=== PATIENT | female | born 1935 | race Caucasian/White ===

== ENCOUNTER 2018-05-12 11:42 | Emergency (ER) | payer MEDICARE ==
[2018-05-12 12:08] VITALS: BP 150/82
--- NOTE | 2018-05-12 13:02 | UC ---
Upper Extremity HPI - HPI Summary HPI Summary: R shoulder pain after hitting it in a door way one week ago. Pain is worsening not improving. Although it has now resolved she did have R under arm bruising. - History of Current Complaint Chief Complaint: UCUpperExtremity Stated Complaint: RIGHT SHOULDER,BACK PAIN Time Seen by Provider: 05/12/18 12:58 Hx Obtained From: Patient Hx Last Menstrual Period: n/a ?: No Onset/Duration: Sudden Onset Pain Intensity: 10 Pain Scale Used: 0-10 Numeric Location Of Pain: Is Discrete @ - r SHOULDER/ARM Character: Sharp, Aching Aggravating Factor(s): Lifting, Flexion, Extension Alleviating Factor(s): Nothing - Allergies/Home Medications Allergies/Adverse Reactions: Allergies Allergy/AdvReac Type Severity Reaction Status Date / Time Penicillins Allergy Hives Verified 05/12/18 11:59 Home Medications: Home Medications Brimonid/Timolol 0.2/0.5%(NF) [Combigan 0.2/0.5% (NF)] 1 drop BOTH EYES BID 04/18 [History Confirmed 05/12/18] Budesonide/Formote 80/4.5(NF) [Symbicort 80/4.5 (NF)] 1 puff INH BID 05/12/18 [ History Confirmed 05/12/18] Dorzolamide HCl 1 dose PO BID 05/12/18 [History Confirmed 05/12/18] Losartan Potassium 100 mg PO DAILY 05/12/18 [History Confirmed 05/12/18] Vitamin E Mixed [E400 Mixed] 400 unit PO DAILY 05/12/18 [History Confirmed 05/12] metFORMIN* [Glucophage 500 MG TAB *] 500 mg PO DAILY 05/12/18 [History Confirmed 05/12/18] PMH/Surg Hx/FS Hx/Imm Hx Previously Healthy: Yes Cardiovascular History: Hypertension - Surgical History Surgical History: Yes Surgery Procedure, Year, and Place: HYSTERECTOMY. BACK SURGERY. CARPAL TUNNEL RELEASE-[facility]. Tube placed in right eye for drainage 08/2014 - Social History Alcohol Use: None Substance Use Type: None Smoking Status (MU): Former Smoker Amount Used/How Often: less than 1 ppd Length of Time of Smoking/Using Tobacco: ~10 years Have You Smoked in the Last Year: No Review of Systems All Other Systems Reviewed And Are Negative: Yes Constitutional: Positive: Negative Skin: Positive: Bruising Neurovascular: Negative: Decreased Sensation, Decreased Pulses Musculoskeletal: Positive: Arthralgia - R shoulder, Decreased ROM - R shoulder. Negative: Edema Neurological: Negative: Weakness, Paresthesia, Numbness Physical Exam Triage Information Reviewed: Yes Appearance: Well-Appearing Vital Signs: Initial Vital Signs Temp 97.5 F 05/12/18 12:00 Pulse 84 05/12/18 12:00 Resp 18 05/12/18 12:00 BP 150/82 05/12/18 12:00 Pulse Ox 98 05/12/18 12:00 Vital Signs Reviewed: Yes Respiratory Exam: Normal Cardiovascular Exam: Normal Musculoskeletal: Positive: No Edema, Other: - R mid-humeral tenderness, R shoulder tenderness, R scapular tenderness. R elbow unremarkable. Neurological: Positive: Alert, Muscle Tone Normal - R UE Skin: Positive: Other - No bruising noted on R upper extremity. Diagnostics - Radiology No standard instances Radiology Interpretation Completed By: Radiologist Summary of Radiographic Findings: FINDINGS: The soft tissues are grossly unremarkable. The bones are osteopenic. No acute fracture is identified. Anatomic alignment is maintained. The coracoclavicular and acromiohumeral intervals are. within normal limits. Upper Extremity Course/Dx - Course Course Of Treatment: 1 wk ago w/ R shoulder pain after hitting it in doorway. Initially had bruise on R arm, but has resolved. exam was significant for tenderness but xray did not show any fx. put her R arm in sling and there was a delay in the reading of the xray but I did explain that if there were a fx we would call her. For now she can take nsaids short term and rest. - Differential Dx/Diagnosis Differential Diagnosis/HQI/PQRI: Bursitis, Contusion, Fracture (Closed), Strain , Sprain Provider Diagnosis: Contusion, shoulder /upper arm Discharge - Sign-Out/Discharge Documenting (check all that apply): Patient Departure All imaging exams completed and their final reports reviewed: Yes - Discharge Plan Condition: Good Disposition: HOME Prescriptions: Ibuprofen [Ibu] 600 mg PO TID #90 tablet Patient Education Materials: Shoulder Sprain (ED) Referrals: Cande Friend MD [Primary Care Provider] - Additional Instructions: Your blood pressure is elevated today. Please follow up with your pcp about this. - Billing Disposition and Condition Condition: GOOD Disposition: Home
--- OUTSIDE RECORDS SUMMARY | 2018-05-12 14:33 | XMS REPORT | Continuity of Care Document ---
:1935 External Reference #:[id number] Author Name Cameron Butts III, MD Address [address] [facility] [place] [address] Care Team Providers Name Role Phone Dallin Trivedi MD Care Team Information [employer] Unavailable Cande Friend MD. Primary Care Physician Unavailable Payers Type Date Identification Numbers Payment Provider Subscriber Policy Number: [id number] [employer] Raya Sharma PayID: [id number] [address] [address] [place] [address] Expires: 2016 Policy Number: [facility] Alexia Sharma [id number] Group Number: [id number] [address] [address] PayID: [id number] [place] [address] Expires: 2015 Policy Number: [id number] Medicare Part B Raya Sharma PayID: [id number] [address] [place] [address] Expires: 2015 Policy Number: [id number] [facility] Raya Sharma PayID: [id number] [address] [place] [address] Expires: 2014 Policy Number: [facility] Alexia Dowell Zachary [id number] PayID: [id number] [address] [address] [place] [address] Advance Directives Description No Information Available Problems Date Description Provider Status Onset: 01/18/2018 Essential hypertension Cameron Butts III, MD Active Onset: 01/18/2018 Osteoarthritis Cameron Butts III, MD Active Onset: 04/13/2018 Presence of intraocular lens Cameron Butts III, MD Active Onset: 04/13/2018 Bilateral primary open angle Cameron Butts III, MD Active glaucoma Family History Date Family Member(s) Problem(s) Comments General Glaucoma Social History Type Date Description Comments Sex Unknown ETOH Use Denies alcohol use Tobacco Use Start: Unknown Patient is a current smoker, smokes some days Allergies, Adverse Reactions, Alerts Date Description Reaction Status Severity Comments 01/18/2018 Penicillin Active Medications Medication Date Status Form Strength Qnty SIG Indications Ordering Provider Combigan 03/26/ Active Solution 0.2-0.5% 20ml instill H40.1132 Cameron F 2017 one drop Devincentis into both III MD eyes twice a day Dorzolamide 03/26/ Active Solution 2% 20ml instill H40.1132 Cameron F HCL 2018 one drop Devincentis into both III MD eyes two times a day Presses 03/14/ Active 3/0 H40.1132 Cameron F 2017 Devincentis III MD Latanoprost 01/19/ Active Solution 0.005% 5ml instill H40.1132 Cameron F 2017 one drop Devincentis into in III MD the left eye at bedtime Ventolin HFA / Active Aerosol 108(90Bas Unknown 0000 e) mcg/Act Diltiazem HCL / Active Caps ER 24HR 360mg Unknown ER Beads 0000 Duloxetine / Active Caps DR Part 30mg Unknown HCL 0000 Gabapentin / Active Capsules 100mg Unknown 0000 Doxycycline / Active Tablets 100mg Unknown Hyclate 0000 Metformin HCL / Active Tablets ER 500mg Unknown ER 0000 24HR Alphagan P 01/19/ Hx Solution 0.1% 20uni 1 drop H40.1132 Cameron Camargo 2017 - ts into the Devincentis 03/26/ left eye III MD 2017 twice a day Cosopt 12/06/ Hx Solution 22.3-6.8m 20ml 1 drop H40.1132 Cameron F 2017 - g/ml both eyes Devincentis 03/26/ twice a III MD 2017 day as directed Combigan 12/06/ Hx Solution 0.2-0.5% 15ml one drop Cameron F 2017 - into both Devincentis 01/19/ eyes III MD 2017 twice a day Azopt 08/25/ Hx Suspension 1% 15ml 1 drop Cameron F 2017 - both eyes Devincentis 01/19/ twice a III MD 2017 day as directed Immunizations Description No Information Available Vital Signs Date Vital Result Comment 04/13/2018 2:00pm Intraocular Pressure Right Eye 12 mmHg ap 02:00 PM Intraocular Pressure Left Eye 12 mmHg ap 02:00 PM Recheck IOP Right Eye 14afd 02:56 PM Recheck IOP Left Eye 13afd 02:56 PM 01/19/2018 10:45am Intraocular Pressure Right Eye 16 mmHg Ap Intraocular Pressure Left Eye 16 mmHg Ap 10:46 Am 01/18/2018 10:07am Cornea Thickness Left Eye 550 m Cornea Thickness Right Eye 609 m Results Description No Information Available Procedures Date Code Description Status 04/13/2018 53775 Scan Computer Diag Imag W/Report Optic Nerve Completed 04/13/2018 08703 Vis Field W/Med Diag;Ext,Stepan Per Completed 01/19/2018 06802 Scan Computer Diag Imag W/Report Optic Nerve Completed 01/19/2018 02402 Vis Field W/Med Diag;Ext,Stepan Per Completed 08/18/2017 41527 Scan Computer Diag Imag W/Report Optic Nerve Completed 08/18/2017 00743 Vis Field W/Med Diag;Ext,Stepan Per Completed 08/18/2017 59276 Exam, Comprehensive, Est PT Completed 01/06/2017 97023 Scan Computer Diag Imag W/Report Optic Nerve Completed 01/06/2017 25880 Vis Field W/Med Diag;Ext,Stepan Per Completed 01/06/2017 03614 Exam, Comprehensive, Est PT Completed 08/26/2016 28616 Scan Computer Diag Imag W/Report Optic Nerve Completed 08/26/2016 95195 Vis Field W/Med Diag;Ext,Stepan Per Completed 02/26/2016 45537 Scan Computer Diag Imag W/Report Optic Nerve Completed 02/26/2016 83604 Vis Field W/Med Diag;Ext,Stepan Per Completed 02/26/2016 32599 Exam, Comprehensive, Est PT Completed 09/18/2015 50324 Vis Field W/Med Diag;Ext,Stepan Per Completed 03/13/2015 18154 Scan Computer Diag Imag W/Report Optic Nerve Completed 03/13/2015 95297 Vis Field W/Med Diag;Ext,Stepan Per Completed 12/08/2014 80692 Scan Computer Diag Imag W/Report Optic Nerve Completed 08/14/2014 48703 Scleral Reinforce;W/Graft OD Completed 08/14/2014 58169 Aqueous Shunt Extraocular Reservr Completed 07/30/2014 97996 Exam, Intermediate Est PT Completed 03/12/2014 35498 Scan Computer Diag Imag W/Report Optic Nerve Completed 03/12/2014 58840 Vis Field W/Med Diag;Ext,Stepan Per Completed 03/12/2014 35633 Exam, Intermediate Est PT Completed 10/04/2013 02411 Scan Computer Diag Imag W/Report Optic Nerve Completed 08/23/2013 33122 Vis Field W/Med Diag;Ext,Stepan Per Completed 08/23/2013 51562 Gonioscopy W/Med Diag Eval Completed 07/16/2013 52131 Scan Computer Diag Imag W/Report Optic Nerve Completed 06/21/2013 64556 Exam Comprehensive, New PT Completed 06/21/2013 43924 Cornea Pachymetry, Unilat/Bilat Completed Encounters Type Date Location Provider Dx Diagnosis Office Visit 01/19/2018 Main Office Cameron F H40.1132 Primary open-angle 10:00a Devincentis III MD glaucoma, bilateral, moderate stage Z96.1 Presence of intraocular lens Office Visit 08/26/2016 1:15p Main Office Cameron F H40.1132 Primary Devincentis III MD open-angle glaucoma, bilateral, moderate stage Z96.1 Presence of intraocular lens Office Visit 09/18/2015 9:30a Main Office Cameron F H40.11x3 Primary Devincentis III MD open-angle glaucoma, severe stage Z96.1 Presence of intraocular lens Office Visit 03/13/2015 10:15a Main Office Cameron F H40.11x3 Primary Devincentis III MD open-angle glaucoma, severe stage Z96.1 Presence of intraocular lens H40.11x2 Primary open-angle glaucoma, moderate stage Office Visit 01/09/2015 10:15a Main Office Cameron F 365.73 Severe Stage Devincentis III MD Glaucoma 365.11 Glaucoma Primary Open Angle Office Visit 12/08/2014 2:30p Main Office Cameron F 365.11 Glaucoma Primary Devincentis III MD Open Angle 365.72 Moderate Stage Glaucoma Office Visit 07/30/2014 9:45a Main Office Cameron F 365.11 Glaucoma Primary Devincentis III MD Open Angle 365.72 Moderate Stage Glaucoma Office Visit 07/11/2014 10:00a Main Office Cameron F 365.11 Glaucoma Primary Devincentis III MD Open Angle 365.72 Moderate Stage Glaucoma Office Visit 01/07/2014 1:45p Main Office Cameron F 365.11 Glaucoma Primary Devincentis III MD Open Angle 365.72 Moderate Stage Glaucoma V43.1 Lens Replaced By Other Means Office Visit 11/04/2013 2:30p Main Office Cameron Camargo 365.11 Glaucoma Primary Devincentis III MD Open Angle 365.72 Moderate Stage Glaucoma V43.1 Lens Replaced By Other Means Office Visit 10/04/2013 10:30a Main Office Cameron Camargo 365.11 Glaucoma Primary Devincentis III MD Open Angle 365.72 Moderate Stage Glaucoma V43.1 Lens Replaced By Other Means Office Visit 08/23/2013 11:00a Main Office Cameron Camargo 365.11 Glaucoma Primary Devincentis III MD Open Angle 365.72 Moderate Stage Glaucoma Office Visit 07/16/2013 1:45p Main Office Cameron Camargo 365.11 Glaucoma Primary Devincentis III MD Open Angle 365.72 Moderate Stage Glaucoma Plan of Treatment Future Appointment(s):10/12/2018 10:15 am - Cameron Butts III, MD at [facility]/13/2018 - Cameron Bojorquezncentis III H40.1132 Primary open-angle glaucoma, bilateral, moderate stageComments:continue the same management. continue same medicationsFollow up:5-6 m iop, OD 10-2, 30-2, OU Nerve Oct, Dil 0.5%.Z96.1 Presence of intraocular lensComments:doing well both eyes.
== END 2018-05-12 14:09 | disposition home or self-care (01) ==
LOC: UCCORT 11:42
DX: S40.011A Contusion of right shoulder, initial encounter (principal); S40.021A Contusion of right upper arm, initial encounter; W22.09XA Striking against other stationary object, initial encounter; Y93.9 Activity, unspecified; Y92.9 Unspecified place or not applicable; Z88.0 Allergy status to penicillin; I10 Essential (primary) hypertension; Z87.891 Personal history of nicotine dependence
CPT/HCPCS: 99203; G0463

== ENCOUNTER 2020-03-17 20:24 | Observation (INO) ==
[2020-03-17] MEDS ORDERED: NS 0.9% 1000 ml BAG 1,000 ML IV ONE (20:51)
[2020-03-17 21:40] LABS: ABS Basophils 0.1 10^3/ul (0-0.2); ABS Eosinophils 0.4 10^3/ul (0-0.6); ABS Lymphocytes 2.5 10^3/ul (1.0-4.8); ABS Neutrophils 7.5 10^3/ul (1.5-7.7); Eosinophil % 3.2 %; Hematocrit 38 % (35-47); Hemoglobin 12.5 g/dL (12.0-16.0); Lymphocyte % 21.9 %; Mean Corpuscular HGB Conc 33 g/dL (31-36); Mean Corpuscular Hemoglobin 30 pg (27-31); Mean Corpuscular Volume 89 fL (80-97); Mean Platelet Volume 7.1 fL (7.4-10.4); Platelet Count 330 10^3/uL (150-450); Red Blood Count 4.25 10^6 /uL (3.70-4.87); Red Cell Distribution Width 14 % (10-15); White Blood Count 11.5 10^3/uL (3.5-10.8)
[2020-03-17 21:54] LABS: INR 1.06 (0.82-1.09)
[2020-03-17 22:00] LABS: Albumin 4.3 g/dL (3.2-5.2); Albumin/Globulin Ratio 1.2 (1-3); BUN/Creatinine Ratio 24.7 (8-20); C Reactive Protein 3.94 mg/L (<8.01); Calcium 10.3 mg/dL (8.6-10.3); EGFR African American 72.9 (>60); EGFR Non-African American 60.3 (>60); Globulin 3.6 g/dL (2-4); Magnesium 1.9 mg/dL (1.9-2.7); Potassium 3.9 mmol/L (3.5-5.0); Total Bilirubin 0.3 mg/dL (0.2-1.0); Total Protein 7.9 g/dL (6.4-8.9)
[2020-03-17] MEDS ORDERED: Iodixanol (CONTRAST) 320 MG/ML 100 ML SDV IV ONE (22:02)
[2020-03-17 22:14] LABS: TSH Ultra Thyroid Stim Horm 2.12 mcIU/mL (0.34-5.60)
[2020-03-17 22:15] LABS: Urine Appearance Clear; Urine Bilirubin Negative (Negative); Urine Blood Negative (Negative); Urine Color Yellow; Urine Glucose Negative (Negative); Urine Ketones Negative (Negative); Urine Nitrite Negative (Negative); Urine Protein Negative (Negative); Urine Specific Gravity 1.011 (1.010-1.030); Urine Urobilinogen Negative (Negative)
[2020-03-18] MEDS ORDERED: Dextrose 50% Syringe 50 ml 25 GM/50 ML SYRINGE IV PUSH PRN (00:22)
[2020-03-18] MEDS ORDERED: Labetalol IV 5 MG/ML 20 ml VIAL IV PUSH PRN ×2 (00:24→00:34)
[2020-03-18] MEDS: Enoxaparin 40 MG/0.4 ML SYR SUBCUT SCH ×2 (01:14→21:00)
[2020-03-18] MEDS: Mometasone/Formoter 100/5 MDI INH SCH ×2 (08:08→19:57)
[2020-03-18] MEDS ORDERED: Perflutren Lipid Microsphere 3 ML VIAL ONE (11:19)
[2020-03-18] MEDS: Brimonidine/Timolol 0.2%/0.5% OPTH(NF) SOL 5 ML BOTH EYES SCH ×2 (11:27→21:00)
[2020-03-18] MEDS: DULoxetine DR 30 mg CAP PO SCH (11:55)
[2020-03-18] MEDS: Aspirin EC 81 mg TAB.EC (enteric coated) PO SCH (11:56)
[2020-03-19 06:06] LABS: ABS Basophils 0.1 10^3/ul (0-0.2); ABS Eosinophils 0.7 10^3/ul (0-0.6); ABS Lymphocytes 3.3 10^3/ul (1.0-4.8); ABS Monocytes 1.2 10^3/ul (0-0.8); ABS Neutrophils 8.6 10^3/ul (1.5-7.7); Eosinophil % 4.7 %; Hematocrit 39 % (35-47); Hemoglobin 12.7 g/dL (12.0-16.0); Lymphocyte % 24.1 %; Mean Corpuscular HGB Conc 33 g/dL (31-36); Mean Corpuscular Hemoglobin 30 pg (27-31); Mean Corpuscular Volume 90 fL (80-97); Mean Platelet Volume 7.3 fL (7.4-10.4); Platelet Count 341 10^3/uL (150-450); Red Cell Distribution Width 14 % (10-15); White Blood Count 13.8 10^3/uL (3.5-10.8)
[2020-03-19 06:25] LABS: BUN/Creatinine Ratio 19.5 (8-20); Calcium 9.7 mg/dL (8.6-10.3); EGFR African American 74.9 (>60); EGFR Non-African American 61.9 (>60); HDL Cholesterol 45.1 mg/dL
[2020-03-19 07:40] VITALS: BP 144/75
[2020-03-19] MEDS: Mometasone/Formoter 100/5 MDI INH SCH (08:30)
[2020-03-19] MEDS: Brimonidine/Timolol 0.2%/0.5% OPTH(NF) SOL 5 ML BOTH EYES SCH (08:41)
[2020-03-19] MEDS: Aspirin EC 81 mg TAB.EC (enteric coated) PO SCH (08:56)
[2020-03-19] MEDS: DULoxetine DR 30 mg CAP PO SCH (08:56)
== END 2020-03-19 11:25 | disposition home or self-care (01) ==
LOC: ED 20:24 → MEDTELE 20:24
PROVIDERS: ADMIT Internal Medicine; ATTEND Pediatrics

== ENCOUNTER 2021-05-04 15:46 | Inpatient (IN) ==
[2021-05-04 16:44] LABS: ABS Basophils 0.1 10^3/ul (0-0.2); ABS Eosinophils 0.5 10^3/ul (0-0.6); ABS Lymphocytes 2.7 10^3/ul (1.0-4.8); ABS Monocytes 1.1 10^3/ul (0-0.8); ABS Neutrophils 8.8 10^3/ul (1.5-7.7); Eosinophil % 3.8 %; Hematocrit 37 % (35-47); Hemoglobin 12.2 g/dL (12.0-16.0); Lymphocyte % 20.6 %; Mean Corpuscular HGB Conc 33 g/dL (31-36); Mean Corpuscular Hemoglobin 30 pg (27-31); Mean Corpuscular Volume 90 fL (80-97); Mean Platelet Volume 7.2 fL (7.4-10.4); Platelet Count 349 10^3/uL (150-450); Red Cell Distribution Width 14 % (10-15); White Blood Count 13.3 10^3/uL (3.5-10.8)
[2021-05-04 17:06] LABS: Albumin 4.2 g/dL (3.2-5.2); Albumin/Globulin Ratio 1.2 (1-3); Calcium 9.6 mg/dL (8.6-10.3); Globulin 3.6 g/dL (2-4); Magnesium 1.8 mg/dL (1.9-2.7); Potassium 4.5 mmol/L (3.5-5.0); Total Bilirubin 0.3 mg/dL (0.2-1.0); Total Protein 7.8 g/dL (6.4-8.9); eGFR CKD-EPI 60.6 (>60)
[2021-05-04] MEDS ORDERED: Magnesium Sulfate 2 gm BAG 2 GM/50 ML BAG IVPB ONE (20:02)
[2021-05-04 20:18] LABS: Urine Appearance Cloudy; Urine Bilirubin Negative (Negative); Urine Blood Negative (Negative); Urine Color Yellow; Urine Glucose Negative (Negative); Urine Ketones Negative (Negative); Urine Nitrite Negative (Negative); Urine Protein Negative (Negative); Urine Specific Gravity 1.009 (1.002-1.030); Urine Urobilinogen Negative (Negative)
[2021-05-04 20:23] LABS: Urine Bacteria Absent (Absent); Urine Red Blood Cell Trace(0-2/hpf) (Absent); Urine White Blood Cell 2+(11-20/hpf) (Absent)
[2021-05-04] MEDS ORDERED: Albuterol HFA INHALER 8 gm MDI INH PRN (20:46)
[2021-05-04] MEDS ORDERED: METFORMIN 500 MG PO SCH (21:00)
[2021-05-04] MEDS: Enoxaparin 40 MG/0.4 ML SYR SUBCUT SCH (21:15)
[2021-05-05] MEDS: Mometasone/Formoter 100/5 MDI INH SCH ×3 (02:07→20:20)
[2021-05-05] MEDS: Latanoprost 0.005% 2.5 ml BTL BOTH EYES SCH ×2 (06:27→20:26)
[2021-05-05] MEDS: CMC:Brimonidine/Timolol 0.2%/0.5% OPTH(NF) SOL 5 ML BOTH EYES SCH ×5 (06:27→20:34)
[2021-05-05] MEDS ORDERED: Dextrose 50% Syringe 50 ml 25 GM/50 ML SYRINGE IV PUSH PRN (06:43)
[2021-05-05 07:09] LABS: ABS Basophils 0.1 10^3/ul (0-0.2); ABS Eosinophils 0.4 10^3/ul (0-0.6); ABS Lymphocytes 3.3 10^3/ul (1.0-4.8); ABS Neutrophils 7.4 10^3/ul (1.5-7.7); Hematocrit 35 % (35-47); Hemoglobin 11.8 g/dL (12.0-16.0); Lymphocyte % 26.9 %; Mean Corpuscular HGB Conc 34 g/dL (31-36); Mean Corpuscular Hemoglobin 30 pg (27-31); Mean Corpuscular Volume 89 fL (80-97); Platelet Count 338 10^3/uL (150-450); Red Blood Count 3.93 10^6 /uL (3.70-4.87); Red Cell Distribution Width 14 % (10-15); White Blood Count 12.2 10^3/uL (3.5-10.8)
[2021-05-05 07:25] LABS: Calcium 9.4 mg/dL (8.6-10.3); Potassium 4.5 mmol/L (3.5-5.0); eGFR CKD-EPI 59.1 (>60)
[2021-05-05 07:40] LABS: C Reactive Protein 2.46 mg/L (<8.01)
[2021-05-05] MEDS ORDERED: Bimatoprost 0.01% OPHTH (NF) 2.5 ML BTL BOTH EYES SCH (09:00)
[2021-05-05] MEDS: DULoxetine DR 30 mg CAP PO SCH (11:43)
[2021-05-05] MEDS: Aspirin EC 81 mg TAB.EC (enteric coated) PO SCH (11:43)
[2021-05-05 12:52] LABS: TSH Ultra Thyroid Stim Horm 0.96 mcIU/mL (0.34-5.60)
[2021-05-05] MEDS: Enoxaparin 40 MG/0.4 ML SYR SUBCUT SCH (20:26)
[2021-05-06 04:55] LABS: ABS Basophils 0.1 10^3/ul (0-0.2); ABS Eosinophils 0.5 10^3/ul (0-0.6); ABS Lymphocytes 3.8 10^3/ul (1.0-4.8); ABS Monocytes 1.2 10^3/ul (0-0.8); ABS Neutrophils 6.8 10^3/ul (1.5-7.7); Eosinophil % 4.1 %; Hematocrit 35 % (35-47); Hemoglobin 11.3 g/dL (12.0-16.0); Lymphocyte % 30.6 %; Mean Corpuscular HGB Conc 32 g/dL (31-36); Mean Corpuscular Hemoglobin 29 pg (27-31); Mean Corpuscular Volume 89 fL (80-97); Mean Platelet Volume 7.3 fL (7.4-10.4); Platelet Count 328 10^3/uL (150-450); Red Blood Count 3.92 10^6 /uL (3.70-4.87); Red Cell Distribution Width 14 % (10-15); White Blood Count 12.3 10^3/uL (3.5-10.8)
[2021-05-06 05:10] LABS: Calcium 9.1 mg/dL (8.6-10.3); Potassium 3.6 mmol/L (3.5-5.0); eGFR CKD-EPI 52.3 (>60)
[2021-05-06] MEDS: DULoxetine DR 30 mg CAP PO SCH (09:31)
[2021-05-06] MEDS: CMC:Brimonidine/Timolol 0.2%/0.5% OPTH(NF) SOL 5 ML BOTH EYES SCH ×2 (09:33→19:42)
[2021-05-06] MEDS: Aspirin EC 81 mg TAB.EC (enteric coated) PO SCH (09:33)
[2021-05-06] MEDS: Mometasone/Formoter 100/5 MDI INH SCH ×2 (09:34→19:13)
[2021-05-06] MEDS ORDERED: NS 0.9% 1000 ml BAG 1,000 ML IV ONE (16:27)
[2021-05-06] MEDS: Latanoprost 0.005% 2.5 ml BTL BOTH EYES SCH (19:42)
[2021-05-06 20:44] LABS: ABS Basophils 0.1 10^3/ul (0-0.2); ABS Eosinophils 0.4 10^3/ul (0-0.6); ABS Monocytes 1.1 10^3/ul (0-0.8); ABS Neutrophils 7.1 10^3/ul (1.5-7.7); Eosinophil % 3.4 %; Hematocrit 32 % (35-47); Lymphocyte % 25.9 %; Mean Corpuscular HGB Conc 34 g/dL (31-36); Mean Corpuscular Hemoglobin 30 pg (27-31); Mean Corpuscular Volume 89 fL (80-97); Mean Platelet Volume 7.4 fL (7.4-10.4); Platelet Count 316 10^3/uL (150-450); Red Blood Count 3.64 10^6 /uL (3.70-4.87); Red Cell Distribution Width 13 % (10-15); White Blood Count 11.6 10^3/uL (3.5-10.8)
[2021-05-06 20:59] LABS: Activated Partial Thrombo Time 28.3 seconds (26.0-38.0); INR 1.05 (0.86-1.15)
[2021-05-06] MEDS: Heparin 5000 UNITS/ML 1 mL VIAL SUBCUT SCH (21:49)
[2021-05-07] MEDS: cefTRIAXone 1 gm/50 mL NS BAG 1 GM/50 ML BAG IVPB SCH ×2 (01:19→19:44)
[2021-05-07] MEDS: Heparin 5000 UNITS/ML 1 mL VIAL SUBCUT SCH ×3 (05:20→22:12)
[2021-05-07 07:17] LABS: Calcium 8.8 mg/dL (8.6-10.3); Magnesium 1.9 mg/dL (1.9-2.7); Potassium 3.7 mmol/L (3.5-5.0); eGFR CKD-EPI 57.6 (>60)
[2021-05-07] MEDS: DULoxetine DR 30 mg CAP PO SCH (07:59)
[2021-05-07] MEDS: CMC:Brimonidine/Timolol 0.2%/0.5% OPTH(NF) SOL 5 ML BOTH EYES SCH (07:59)
[2021-05-07] MEDS: Mometasone/Formoter 100/5 MDI INH SCH ×2 (08:36→19:19)
[2021-05-07] MEDS ORDERED: NS 0.9% 500 ml BAG 500 ML IV ONE ×2 (11:32→17:11)
[2021-05-07 17:53] LABS: Rapid COVID-19 Molecular Undetected (Undetected)
[2021-05-07] MEDS: Latanoprost 0.005% 2.5 ml BTL BOTH EYES SCH (19:44)
[2021-05-08] MEDS ORDERED: NS 0.9% 500 ml BAG 500 ML IV ONE (03:39)
[2021-05-08] MEDS: Heparin 5000 UNITS/ML 1 mL VIAL SUBCUT SCH (05:22)
[2021-05-08] MEDS: Mometasone/Formoter 100/5 MDI INH SCH (07:59)
[2021-05-08 08:04] LABS: ABS Basophils 0.1 10^3/ul (0-0.2); ABS Eosinophils 0.5 10^3/ul (0-0.6); ABS Lymphocytes 2.6 10^3/ul (1.0-4.8); ABS Monocytes 0.9 10^3/ul (0-0.8); ABS Neutrophils 6.9 10^3/ul (1.5-7.7); Eosinophil % 4.6 %; Hematocrit 34 % (35-47); Hemoglobin 11.3 g/dL (12.0-16.0); Lymphocyte % 23.8 %; Mean Corpuscular HGB Conc 34 g/dL (31-36); Mean Corpuscular Hemoglobin 30 pg (27-31); Mean Corpuscular Volume 90 fL (80-97); Mean Platelet Volume 7.5 fL (7.4-10.4); Platelet Count 303 10^3/uL (150-450); Red Blood Count 3.74 10^6 /uL (3.70-4.87); Red Cell Distribution Width 14 % (10-15)
[2021-05-08 08:09] LABS: Calcium 8.7 mg/dL (8.6-10.3); Magnesium 1.9 mg/dL (1.9-2.7); Potassium 4.3 mmol/L (3.5-5.0); eGFR CKD-EPI 61.4 (>60)
[2021-05-08] MEDS: DULoxetine DR 30 mg CAP PO SCH (08:37)
[2021-05-08 11:06] VITALS: BP 176/73
== END 2021-05-08 12:33 | disposition short-term general hospital (02) | DRG 312 ==
LOC: ED 15:46 → MED 16:00 → EDHOLD 19:56 → SUATTDRO 19:56 → MED 22:27
PROVIDERS: ADMIT Internal Medicine; ATTEND Internal Medicine

== ENCOUNTER 2021-09-06 20:03 | Inpatient (IN) ==
[2021-09-06] MEDS ORDERED: Enoxaparin 80 MG/0.8 ML SYR SUBCUT ONE (20:50)
[2021-09-06 21:04] LABS: ABS Basophils 0.1 10^3/ul (0-0.2); ABS Eosinophils 0.4 10^3/ul (0-0.6); ABS Lymphocytes 1.7 10^3/ul (1.0-4.8); ABS Neutrophils 17.2 10^3/ul (1.5-7.7); Eosinophil % 1.9 %; Hematocrit 30 % (35-47); Hemoglobin 9.5 g/dL (12.0-16.0); Lymphocyte % 8.3 %; Mean Corpuscular HGB Conc 32 g/dL (31-36); Mean Corpuscular Hemoglobin 28 pg (27-31); Mean Corpuscular Volume 87 fL (80-97); Mean Platelet Volume 7.1 fL (7.4-10.4); Platelet Count 470 10^3/uL (150-450); Red Blood Count 3.46 10^6 /uL (3.70-4.87); Red Cell Distribution Width 15 % (10-15); White Blood Count 20.4 10^3/uL (3.5-10.8)
[2021-09-06 21:24] LABS: High Sens Troponin Baseline 44 pg/mL (<15)
[2021-09-06 21:38] LABS: Albumin 3.6 g/dL (3.2-5.2); CO2 Carbon Dioxide 22 mmol/L (22-32); Calcium 9.1 mg/dL (8.6-10.3); Chloride 105 mmol/L (101-111); Sodium 136 mmol/L (135-145)
[2021-09-06 21:39] LABS: Anion Gap 9 mmol/L (2-11)
[2021-09-06 21:39] LABS: Activated Partial Thrombo Time 28.5 seconds (26.0-38.0); INR 1.1 (0.86-1.15)
[2021-09-06 21:44] LABS: ALT 17 U/L (7-52); Albumin/Globulin Ratio 1.1 (1-3); Alkaline Phosphatase 80 U/L (35-149); Blood Urea Nitrogen 19 mg/dL (6-24); Globulin 3.3 g/dL (2-4); Glucose 171 mg/dL (70-100); Total Protein 6.9 g/dL (6.4-8.9); eGFR CKD-EPI 65.3 (>60)
[2021-09-06] MEDS ORDERED: Iodixanol (CONTRAST) 320 MG/ML 100 ML SDV IV ONE (21:45)
[2021-09-06 22:44] LABS: High Sensitivity Troponin 1 Hr 55 pg/mL (<15)
[2021-09-06 23:01] LABS: Magnesium 1.9 mg/dL (1.9-2.7); Potassium Redraw 3.9 mmol/L (3.5-5.0)
[2021-09-07] MEDS ORDERED: Furosemide 20 mg/2 ml IV VIAL IV ONE ×2 (01:45→09:38)
[2021-09-07 04:04] LABS: Urine Appearance Cloudy; Urine Bilirubin Negative (Negative); Urine Blood Negative (Negative); Urine Color Yellow; Urine Glucose Negative (Negative); Urine Ketones Negative (Negative); Urine Nitrite Positive (Negative); Urine Protein Negative (Negative); Urine Specific Gravity 1.026 (1.002-1.030); Urine Urobilinogen Negative (Negative)
[2021-09-07 04:07] LABS: Urine Bacteria Absent (Absent); Urine Red Blood Cell 1+(3-5/hpf) (Absent); Urine Squamous Epithelial Cell Present (Absent); Urine White Blood Cell Trace(0-5/hpf) (Absent)
[2021-09-07] MEDS ORDERED: Dextrose 50% Syringe 50 ml 25 GM/50 ML SYRINGE IV PUSH PRN (04:47)
[2021-09-07] MEDS ORDERED: cefTRIAXone 1 gm/50 mL D5W 1 GM/50 ML BAG IV ONE (05:00)
[2021-09-07 06:02] LABS: ABS Basophils 0.1 10^3/ul (0-0.2); ABS Eosinophils 0.3 10^3/ul (0-0.6); ABS Monocytes 1.1 10^3/ul (0-0.8); ABS Neutrophils 11.3 10^3/ul (1.5-7.7); Eosinophil % 2.3 %; Hematocrit 27 % (35-47); Hemoglobin 8.7 g/dL (12.0-16.0); Lymphocyte % 13.5 %; Mean Corpuscular HGB Conc 32 g/dL (31-36); Mean Corpuscular Hemoglobin 28 pg (27-31); Mean Corpuscular Volume 86 fL (80-97); Platelet Count 406 10^3/uL (150-450); Red Cell Distribution Width 15 % (10-15); White Blood Count 14.9 10^3/uL (3.5-10.8)
[2021-09-07] MEDS: Enoxaparin 40 MG/0.4 ML SYR SUBCUT SCH (06:34)
[2021-09-07 07:04] LABS: Calcium 8.8 mg/dL (8.6-10.3); HDL Cholesterol 35.9 mg/dL; Potassium 4.1 mmol/L (3.5-5.0); eGFR CKD-EPI 61.1 (>60)
[2021-09-07 07:16] LABS: TSH Ultra Thyroid Stim Horm 1.15 mcIU/mL (0.34-5.60)
[2021-09-07] MEDS: Mometasone/Formoter 100/5 MDI INH SCH (07:32)
[2021-09-07] MEDS: DULoxetine DR 30 mg CAP PO SCH (09:04)
[2021-09-07] MEDS: CMCS: Dorzolamide 2% OPTH (NF) 10 ML BTL BOTH EYES SCH ×2 (09:04→21:46)
[2021-09-07] MEDS: CMCS: Brimonidine/Timolol 0.2%/0.5% OPTH(NF) SOL 5 ML BOTH EYES SCH ×2 (09:05→21:47)
[2021-09-07 09:53] LABS: Ferritin 27.4 ng/mL (11-307)
[2021-09-07] MEDS ORDERED: Perflutren Lipid Microsphere 3 ML VIAL ONE (10:34)
[2021-09-07 15:45] LABS: Hematocrit 30 % (35-47); Hemoglobin 9.3 g/dL (12.0-16.0); Mean Corpuscular HGB Conc 31 g/dL (31-36); Mean Corpuscular Hemoglobin 27 pg (27-31); Mean Corpuscular Volume 87 fL (80-97); Red Cell Distribution Width 14 % (10-15)
[2021-09-07 15:58] LABS: Platelet Count Platelets clumped. 10^3/uL (150-450)
[2021-09-07] MEDS: Latanoprost 0.005% 2.5 ml BTL BOTH EYES SCH (21:47)
[2021-09-08] MEDS ORDERED: cefTRIAXone 1 gm/50 mL D5W 1 GM/50 ML BAG IV SCH (05:00)
[2021-09-08] MEDS: Enoxaparin 40 MG/0.4 ML SYR SUBCUT SCH (06:14)
[2021-09-08 06:48] LABS: Hematocrit 29 % (35-47); Hemoglobin 9.4 g/dL (12.0-16.0); Mean Corpuscular HGB Conc 32 g/dL (31-36); Mean Corpuscular Hemoglobin 28 pg (27-31); Mean Corpuscular Volume 86 fL (80-97); Mean Platelet Volume 7.1 fL (7.4-10.4); Platelet Count 406 10^3/uL (150-450); Red Blood Count 3.39 10^6 /uL (3.70-4.87); Red Cell Distribution Width 14 % (10-15); White Blood Count 13.9 10^3/uL (3.5-10.8)
[2021-09-08 07:42] LABS: Calcium 9.1 mg/dL (8.6-10.3); eGFR CKD-EPI 55.2 (>60)
[2021-09-08] MEDS: Mometasone/Formoter 100/5 MDI INH SCH (08:30)
[2021-09-08] MEDS ORDERED: Senna TAB 8.6 mg TAB PO PRN (08:58)
[2021-09-08] MEDS ORDERED: NS 0.9% 1000 ml BAG 1,000 ML IV SCH (09:00)
[2021-09-08] MEDS ORDERED: Magnesium Sulfate 2 gm BAG 2 GM/50 ML BAG IVPB ONE (09:02)
[2021-09-08] MEDS ORDERED: Magnesium Hydroxide LIQ 30 ML UDC PO PRN (09:02)
[2021-09-08] MEDS: DULoxetine DR 30 mg CAP PO SCH (09:51)
[2021-09-08] MEDS: CMCS: Brimonidine/Timolol 0.2%/0.5% OPTH(NF) SOL 5 ML BOTH EYES SCH ×2 (09:54→20:26)
[2021-09-08] MEDS: CMCS: Dorzolamide 2% OPTH (NF) 10 ML BTL BOTH EYES SCH ×2 (09:55→20:25)
[2021-09-08] MEDS: Nystatin TOP POWDER 15 GM BTL TOPICAL SCH ×3 (10:01→20:25)
[2021-09-08 16:57] LABS: C Reactive Protein 11.57 mg/L (<8.01)
[2021-09-08] MEDS ORDERED: Cefepime ADVAN 1 GM in NS 0.9% 50 ML 50 ML IVPB SCH (17:00)
[2021-09-08] MEDS: Cefepime 1 GM in Dextrose 1 GM/50 ML BAG IV SCH (19:42)
[2021-09-08] MEDS: Latanoprost 0.005% 2.5 ml BTL BOTH EYES SCH (20:25)
[2021-09-09 05:25] LABS: ABS Basophils 0.1 10^3/ul (0-0.2); ABS Eosinophils 0.6 10^3/ul (0-0.6); ABS Monocytes 1.3 10^3/ul (0-0.8); ABS Neutrophils 9.9 10^3/ul (1.5-7.7); Eosinophil % 4.5 %; Hematocrit 30 % (35-47); Hemoglobin 9.6 g/dL (12.0-16.0); Lymphocyte % 14.3 %; Mean Corpuscular HGB Conc 33 g/dL (31-36); Mean Corpuscular Hemoglobin 28 pg (27-31); Mean Corpuscular Volume 85 fL (80-97); Mean Platelet Volume 6.8 fL (7.4-10.4); Platelet Count 388 10^3/uL (150-450); Red Blood Count 3.47 10^6 /uL (3.70-4.87); Red Cell Distribution Width 14 % (10-15); White Blood Count 13.8 10^3/uL (3.5-10.8)
[2021-09-09] MEDS: Cefepime 1 GM in Dextrose 1 GM/50 ML BAG IV SCH ×2 (05:39→17:14)
[2021-09-09 05:45] LABS: Magnesium 2.4 mg/dL (1.9-2.7); Potassium 3.6 mmol/L (3.5-5.0); eGFR CKD-EPI 44.7 (>60)
[2021-09-09] MEDS: Enoxaparin 40 MG/0.4 ML SYR SUBCUT SCH (06:06)
[2021-09-09] MEDS: Mometasone/Formoter 100/5 MDI INH SCH (08:09)
[2021-09-09] MEDS: DULoxetine DR 30 mg CAP PO SCH (10:09)
[2021-09-09] MEDS: CMCS: Dorzolamide 2% OPTH (NF) 10 ML BTL BOTH EYES SCH ×2 (10:13→20:21)
[2021-09-09] MEDS: CMCS: Brimonidine/Timolol 0.2%/0.5% OPTH(NF) SOL 5 ML BOTH EYES SCH ×2 (10:14→20:21)
[2021-09-09] MEDS: Nystatin TOP POWDER 15 GM BTL TOPICAL SCH ×3 (13:02→20:21)
[2021-09-09] MEDS ORDERED: Iron Sucrose 20 MG/ML 5 ML VIAL IV PUSH ONE (13:18)
[2021-09-09] MEDS ORDERED: Iron Sucrose 200 MG in NS 0.9% 100 ml IVPB ONE (13:45)
[2021-09-09] MEDS: Latanoprost 0.005% 2.5 ml BTL BOTH EYES SCH (20:21)
[2021-09-10 04:44] LABS: Hematocrit 28 % (35-47); Mean Corpuscular HGB Conc 32 g/dL (31-36); Mean Corpuscular Hemoglobin 28 pg (27-31); Mean Corpuscular Volume 86 fL (80-97); Mean Platelet Volume 7.1 fL (7.4-10.4); Platelet Count 346 10^3/uL (150-450); Red Blood Count 3.28 10^6 /uL (3.70-4.87); Red Cell Distribution Width 15 % (10-15)
[2021-09-10 05:16] LABS: Calcium 8.7 mg/dL (8.6-10.3); Magnesium 2.1 mg/dL (1.9-2.7); Potassium 3.5 mmol/L (3.5-5.0)
[2021-09-10 05:22] LABS: eGFR CKD-EPI 47.1 (>60)
[2021-09-10] MEDS: Cefepime 1 GM in Dextrose 1 GM/50 ML BAG IV SCH ×2 (06:12→20:07)
[2021-09-10] MEDS: Enoxaparin 40 MG/0.4 ML SYR SUBCUT SCH (06:12)
[2021-09-10] MEDS: Mometasone/Formoter 100/5 MDI INH SCH (08:30)
[2021-09-10] MEDS: DULoxetine DR 30 mg CAP PO SCH (09:27)
[2021-09-10] MEDS: CMCS: Brimonidine/Timolol 0.2%/0.5% OPTH(NF) SOL 5 ML BOTH EYES SCH ×2 (09:29→20:11)
[2021-09-10] MEDS: CMCS: Dorzolamide 2% OPTH (NF) 10 ML BTL BOTH EYES SCH ×2 (09:30→20:11)
[2021-09-10] MEDS: Nystatin TOP POWDER 15 GM BTL TOPICAL SCH ×3 (09:32→20:12)
[2021-09-10] MEDS ORDERED: Iron Sucrose 200 MG in NS 0.9% 100 ml BAG 100 ML IVPB ONE (13:44)
[2021-09-10] MEDS: Latanoprost 0.005% 2.5 ml BTL BOTH EYES SCH (20:11)
[2021-09-11] MEDS: Enoxaparin 40 MG/0.4 ML SYR SUBCUT SCH (05:41)
[2021-09-11] MEDS: Cefepime 1 GM in Dextrose 1 GM/50 ML BAG IV SCH ×2 (05:41→18:06)
[2021-09-11 06:14] LABS: Hematocrit 29 % (35-47); Hemoglobin 9.2 g/dL (12.0-16.0); Mean Corpuscular HGB Conc 32 g/dL (31-36); Mean Corpuscular Hemoglobin 27 pg (27-31); Mean Corpuscular Volume 86 fL (80-97); Platelet Count 324 10^3/uL (150-450); Red Blood Count 3.37 10^6 /uL (3.70-4.87); Red Cell Distribution Width 15 % (10-15); White Blood Count 15.4 10^3/uL (3.5-10.8)
[2021-09-11 06:35] LABS: Calcium 8.8 mg/dL (8.6-10.3); Potassium 3.7 mmol/L (3.5-5.0); eGFR CKD-EPI 51.4 (>60)
[2021-09-11] MEDS: Mometasone/Formoter 100/5 MDI INH SCH (07:33)
[2021-09-11] MEDS: DULoxetine DR 30 mg CAP PO SCH (09:02)
[2021-09-11 09:47] LABS: ABS Basophils 0.1 10^3/ul (0-0.2); ABS Eosinophils 0.5 10^3/ul (0-0.6); ABS Monocytes 1.4 10^3/ul (0-0.8); ABS Neutrophils 11.3 10^3/ul (1.5-7.7); Eosinophil % 3.3 %; Lymphocyte % 13.3 %; Nucleated Red Blood Cells % 0.1
[2021-09-11] MEDS: CMCS: Brimonidine/Timolol 0.2%/0.5% OPTH(NF) SOL 5 ML BOTH EYES SCH ×2 (09:58→21:35)
[2021-09-11] MEDS: CMCS: Dorzolamide 2% OPTH (NF) 10 ML BTL BOTH EYES SCH ×2 (09:58→21:34)
[2021-09-11] MEDS: Nystatin TOP POWDER 15 GM BTL TOPICAL SCH ×3 (09:58→21:43)
[2021-09-11] MEDS ORDERED: Polyethylene Glycol 3350 17 GM PACKET PO PRN (12:19)
[2021-09-11] MEDS: Latanoprost 0.005% 2.5 ml BTL BOTH EYES SCH (21:34)
[2021-09-12 05:24] LABS: ABS Basophils 0.1 10^3/ul (0-0.2); ABS Eosinophils 0.5 10^3/ul (0-0.6); ABS Lymphocytes 1.7 10^3/ul (1.0-4.8); ABS Monocytes 1.4 10^3/ul (0-0.8); ABS Neutrophils 11.9 10^3/ul (1.5-7.7); Eosinophil % 3.4 %; Hematocrit 28 % (35-47); Lymphocyte % 11.1 %; Mean Corpuscular HGB Conc 32 g/dL (31-36); Mean Corpuscular Hemoglobin 27 pg (27-31); Mean Corpuscular Volume 85 fL (80-97); Mean Platelet Volume 7.4 fL (7.4-10.4); Nucleated Red Blood Cells % 0.1; Platelet Count 323 10^3/uL (150-450); Red Cell Distribution Width 14 % (10-15); White Blood Count 15.7 10^3/uL (3.5-10.8)
[2021-09-12 05:43] LABS: Calcium 8.8 mg/dL (8.6-10.3); Magnesium 2.1 mg/dL (1.9-2.7); Potassium 3.8 mmol/L (3.5-5.0); eGFR CKD-EPI 55.2 (>60)
[2021-09-12] MEDS: Cefepime 1 GM in Dextrose 1 GM/50 ML BAG IV SCH ×2 (06:00→17:26)
[2021-09-12] MEDS: Enoxaparin 40 MG/0.4 ML SYR SUBCUT SCH (06:00)
[2021-09-12] MEDS: Mometasone/Formoter 100/5 MDI INH SCH (07:23)
[2021-09-12] MEDS: DULoxetine DR 30 mg CAP PO SCH (09:05)
[2021-09-12] MEDS: CMCS: Dorzolamide 2% OPTH (NF) 10 ML BTL BOTH EYES SCH ×2 (09:07→21:17)
[2021-09-12] MEDS: CMCS: Brimonidine/Timolol 0.2%/0.5% OPTH(NF) SOL 5 ML BOTH EYES SCH ×2 (09:09→21:16)
[2021-09-12] MEDS: Nystatin TOP POWDER 15 GM BTL TOPICAL SCH ×3 (09:09→21:40)
[2021-09-12] MEDS: Latanoprost 0.005% 2.5 ml BTL BOTH EYES SCH (21:17)
[2021-09-13] MEDS: Cefepime 1 GM in Dextrose 1 GM/50 ML BAG IV SCH ×2 (05:26→18:56)
[2021-09-13] MEDS: Enoxaparin 40 MG/0.4 ML SYR SUBCUT SCH (05:26)
[2021-09-13 06:21] LABS: ABS Basophils 0.1 10^3/ul (0-0.2); ABS Eosinophils 0.6 10^3/ul (0-0.6); ABS Lymphocytes 1.9 10^3/ul (1.0-4.8); ABS Monocytes 1.2 10^3/ul (0-0.8); ABS Neutrophils 8.4 10^3/ul (1.5-7.7); Eosinophil % 5.2 %; Hematocrit 31 % (35-47); Hemoglobin 9.6 g/dL (12.0-16.0); Lymphocyte % 15.5 %; Mean Corpuscular HGB Conc 31 g/dL (31-36); Mean Corpuscular Hemoglobin 28 pg (27-31); Mean Corpuscular Volume 88 fL (80-97); Mean Platelet Volume 7.4 fL (7.4-10.4); Platelet Count 315 10^3/uL (150-450); Red Blood Count 3.49 10^6 /uL (3.70-4.87); Red Cell Distribution Width 15 % (10-15); White Blood Count 12.2 10^3/uL (3.5-10.8)
[2021-09-13 06:33] LABS: CO2 Carbon Dioxide 24 mmol/L (22-32); Calcium 8.9 mg/dL (8.6-10.3); Chloride 103 mmol/L (101-111); Sodium 133 mmol/L (135-145)
[2021-09-13 06:38] LABS: Blood Urea Nitrogen 22 mg/dL (6-24); Glucose 109 mg/dL (70-100); eGFR CKD-EPI 56.6 (>60)
[2021-09-13 06:41] LABS: Anion Gap 6 mmol/L (2-11)
[2021-09-13] MEDS ORDERED: Perflutren Lipid Microsphere 3 ML VIAL ONE (08:10)
[2021-09-13] MEDS: DULoxetine DR 30 mg CAP PO SCH (08:37)
[2021-09-13] MEDS: CMCS: Dorzolamide 2% OPTH (NF) 10 ML BTL BOTH EYES SCH ×2 (08:38→21:05)
[2021-09-13] MEDS: CMCS: Brimonidine/Timolol 0.2%/0.5% OPTH(NF) SOL 5 ML BOTH EYES SCH ×2 (08:38→21:05)
[2021-09-13 08:39] LABS: Magnesium 2.1 mg/dL (1.9-2.7)
[2021-09-13] MEDS: Nystatin TOP POWDER 15 GM BTL TOPICAL SCH ×3 (08:40→21:07)
[2021-09-13] MEDS: Mometasone/Formoter 100/5 MDI INH SCH (08:52)
[2021-09-13] MEDS ORDERED: Regadenoson 0.4 MG/5 ML SYRINGE ONE (10:16)
[2021-09-13] MEDS ORDERED: Aminophylline 25 MG/ML VIAL ONE (11:34)
[2021-09-13] MEDS: Latanoprost 0.005% 2.5 ml BTL BOTH EYES SCH (21:05)
[2021-09-14] MEDS: Enoxaparin 40 MG/0.4 ML SYR SUBCUT SCH (05:32)
[2021-09-14] MEDS: Cefepime 1 GM in Dextrose 1 GM/50 ML BAG IV SCH (05:32)
[2021-09-14 06:46] LABS: ABS Basophils 0.1 10^3/ul (0-0.2); ABS Eosinophils 0.7 10^3/ul (0-0.6); ABS Lymphocytes 1.8 10^3/ul (1.0-4.8); ABS Monocytes 1.1 10^3/ul (0-0.8); ABS Neutrophils 7.6 10^3/ul (1.5-7.7); Eosinophil % 6.5 %; Hematocrit 26 % (35-47); Hemoglobin 8.9 g/dL (12.0-16.0); Lymphocyte % 15.5 %; Mean Corpuscular HGB Conc 34 g/dL (31-36); Mean Corpuscular Hemoglobin 29 pg (27-31); Mean Corpuscular Volume 86 fL (80-97); Mean Platelet Volume 7.3 fL (7.4-10.4); Nucleated Red Blood Cells % 0.1; Platelet Count 335 10^3/uL (150-450); Red Blood Count 3.09 10^6 /uL (3.70-4.87); Red Cell Distribution Width 15 % (10-15); White Blood Count 11.3 10^3/uL (3.5-10.8)
[2021-09-14 07:03] LABS: Magnesium 2.1 mg/dL (1.9-2.7); Potassium 3.7 mmol/L (3.5-5.0); eGFR CKD-EPI 45.6 (>60)
[2021-09-14] MEDS: Mometasone/Formoter 100/5 MDI INH SCH (07:25)
[2021-09-14] MEDS: CMCS: Brimonidine/Timolol 0.2%/0.5% OPTH(NF) SOL 5 ML BOTH EYES SCH ×2 (09:00→20:25)
[2021-09-14] MEDS: CMCS: Dorzolamide 2% OPTH (NF) 10 ML BTL BOTH EYES SCH ×2 (09:00→20:27)
[2021-09-14] MEDS: Nystatin TOP POWDER 15 GM BTL TOPICAL SCH ×3 (09:20→20:14)
[2021-09-14] MEDS: DULoxetine DR 30 mg CAP PO SCH (09:22)
[2021-09-14] MEDS: Latanoprost 0.005% 2.5 ml BTL BOTH EYES SCH (20:28)
[2021-09-15 05:46] LABS: ABS Basophils 0.1 10^3/ul (0-0.2); ABS Eosinophils 0.7 10^3/ul (0-0.6); ABS Lymphocytes 1.9 10^3/ul (1.0-4.8); ABS Monocytes 1.3 10^3/ul (0-0.8); ABS Neutrophils 6.4 10^3/ul (1.5-7.7); Eosinophil % 6.6 %; Hematocrit 28 % (35-47); Hemoglobin 9.4 g/dL (12.0-16.0); Mean Corpuscular HGB Conc 33 g/dL (31-36); Mean Corpuscular Hemoglobin 29 pg (27-31); Mean Corpuscular Volume 86 fL (80-97); Mean Platelet Volume 7.2 fL (7.4-10.4); Nucleated Red Blood Cells % 0.1; Platelet Count 327 10^3/uL (150-450); Red Blood Count 3.32 10^6 /uL (3.70-4.87); Red Cell Distribution Width 15 % (10-15); White Blood Count 10.3 10^3/uL (3.5-10.8)
[2021-09-15] MEDS: Enoxaparin 40 MG/0.4 ML SYR SUBCUT SCH (06:03)
[2021-09-15 06:22] LABS: Magnesium 2.2 mg/dL (1.9-2.7)
[2021-09-15 06:28] LABS: eGFR CKD-EPI 47.1 (>60)
[2021-09-15] MEDS: DULoxetine DR 30 mg CAP PO SCH (08:31)
[2021-09-15] MEDS: Nystatin TOP POWDER 15 GM BTL TOPICAL SCH (08:33)
[2021-09-15] MEDS: CMCS: Brimonidine/Timolol 0.2%/0.5% OPTH(NF) SOL 5 ML BOTH EYES SCH (08:33)
[2021-09-15] MEDS: CMCS: Dorzolamide 2% OPTH (NF) 10 ML BTL BOTH EYES SCH (08:34)
[2021-09-15] MEDS: Mometasone/Formoter 100/5 MDI INH SCH (08:35)
[2021-09-15 08:45] VITALS: BP 141/55
[2021-09-15 10:34] LABS: Rapid COVID-19 Molecular Undetected (Undetected)
== END 2021-09-15 12:02 | DRG 280 ==
LOC: EDHOLD 20:03 → ED 20:03 → SUATTDRO 09-07 04:37 → MEDTELE 09-07 16:27
PROVIDERS: ADMIT Internal Medicine; ATTEND Internal Medicine

== ENCOUNTER 2022-06-15 10:03 | Observation (INO) ==
[~2022-06-15 10:03] MED LIST: NS 0.9% 1000 ml BAG 1,000 ML IV SCH; ceFAZolin 2 GM in NS PREMIX 2 GM/100 ML BAG IVPB ONE
[2022-06-15 10:34] LABS: Rapid COVID-19 Molecular Undetected (Undetected)
[2022-06-15] MEDS ORDERED: ceFAZolin 2 GM/50 ML BAG IV ONE (11:00)
[2022-06-15] MEDS ORDERED: Midazolam 5 mg/5 ml VIAL 1 mg/ml 5 ml VIAL (5 mg) ONE ×3 (11:18→13:57)
[2022-06-15] MEDS ORDERED: fentaNYL 100 mcg/2 ml 50 MCG/ML VIAL ONE (11:18)
[2022-06-15] MEDS ORDERED: Iohexol 180 (CONTRAST) 10 ML SDV IV ONE ×2 (11:18→12:51)
[2022-06-15] MEDS ORDERED: Lidocaine 1% VIAL 10 MG/ML VIAL 30 ML ONE ×2 (11:18→12:15)
[2022-06-15 11:36] LABS: Calcium 9.6 mg/dL (8.6-10.3); Creatinine, Serum 1.13 mg/dL (0.51-0.95); Potassium 4.6 mmol/L (3.5-5.0); eGFR CKD-EPI 47.1 (>60)
[2022-06-15] MEDS ORDERED: Iohexol 350 (CONTRAST) 100 ML PAK IV ONE ×2 (12:25→13:41)
[2022-06-15] MEDS ORDERED: Iohexol 300 (CONTRAST) 10 ML SDV ONE (12:48)
[2022-06-15] MEDS ORDERED: Senna TAB 8.6 mg TAB PO PRN (14:38)
[2022-06-15] MEDS ORDERED: Magnesium Hydroxide LIQ 30 ML UDC PO PRN (14:38)
[2022-06-15] MEDS: Mometasone/Formoter 100/5 MDI INH SCH (19:36)
[2022-06-15] MEDS: ceFAZolin 500 MG VIAL 500 MG in NS 0.9% 50 ML 50 ML IVPB SCH (20:12)
[2022-06-15] MEDS: CMC:Dorzolamide 2% OPTH (NF) 10 ML BTL BOTH EYES SCH (20:22)
[2022-06-15] MEDS: Latanoprost 0.005% 2.5 ml BTL BOTH EYES SCH (20:22)
[2022-06-16] MEDS: ceFAZolin 500 MG VIAL 500 MG in NS 0.9% 50 ML 50 ML IVPB SCH ×3 (03:05→19:45)
[2022-06-16] MEDS: Mometasone/Formoter 100/5 MDI INH SCH ×2 (08:21→19:58)
[2022-06-16 08:58] LABS: Hematocrit 29 % (35-47); Hemoglobin 9.2 g/dL (12.0-16.0); Mean Corpuscular HGB Conc 31 g/dL (31-36); Mean Corpuscular Hemoglobin 28 pg (27-31); Mean Corpuscular Volume 88 fL (80-97); Mean Platelet Volume 7.6 fL (7.4-10.4); Platelet Count 291 10^3/uL (150-450); Red Blood Count 3.33 10^6 /uL (3.70-4.87); Red Cell Distribution Width 15 % (10-15); White Blood Count 15.1 10^3/uL (3.5-10.8)
[2022-06-16 09:23] LABS: Calcium 8.9 mg/dL (8.6-10.3); Creatinine, Serum 1.11 mg/dL (0.51-0.95); eGFR CKD-EPI 48.1 (>60)
[2022-06-16 09:25] LABS: Potassium 5.2 mmol/L (3.5-5.0)
[2022-06-16] MEDS: DULoxetine DR 30 mg CAP PO SCH (09:50)
[2022-06-16] MEDS: CMC:Dorzolamide 2% OPTH (NF) 10 ML BTL BOTH EYES SCH ×3 (09:51→20:22)
[2022-06-16 13:19] LABS: ABS Basophils 0.1 10^3/ul (0-0.2); ABS Eosinophils 0.3 10^3/ul (0-0.6); ABS Lymphocytes 2.1 10^3/ul (1.0-4.8); ABS Monocytes 1.1 10^3/ul (0-0.8); ABS Neutrophils 11.6 10^3/ul (1.5-7.7)
[2022-06-16] MEDS: Latanoprost 0.005% 2.5 ml BTL BOTH EYES SCH (20:22)
[2022-06-17] MEDS: ceFAZolin 500 MG VIAL 500 MG in NS 0.9% 50 ML 50 ML IVPB SCH (02:45)
[2022-06-17 06:50] LABS: Urine Appearance Turbid; Urine Bilirubin Negative (Negative); Urine Blood 3+ (Negative); Urine Color Yellow; Urine Glucose Negative (Negative); Urine Ketones Negative (Negative); Urine Nitrite Negative (Negative); Urine Protein Negative (Negative); Urine Specific Gravity 1.011 (1.002-1.030); Urine Urobilinogen Negative (Negative)
[2022-06-17 07:05] LABS: Urine Bacteria 1+ (Absent); Urine Red Blood Cell 2+(6-10/hpf) (Absent); Urine Squamous Epithelial Cell Present (Absent); Urine White Blood Cell 3+(>20/hpf) (Absent); Urine Yeast Present (Absent)
[2022-06-17] MEDS: Mometasone/Formoter 100/5 MDI INH SCH (07:49)
[2022-06-17] MEDS: CMC:Dorzolamide 2% OPTH (NF) 10 ML BTL BOTH EYES SCH (08:34)
[2022-06-17] MEDS: DULoxetine DR 30 mg CAP PO SCH (08:37)
[2022-06-17 13:27] VITALS: BP 90/60
== END 2022-06-17 13:47 ==
LOC: CHICATH 10:03 → MEDTELE 10:03
PROVIDERS: ADMIT Specialist; ATTEND Specialist

== ENCOUNTER 2023-03-11 16:05 | Observation (INO) ==
[2023-03-11 18:09] LABS: ABS Basophils 0.1 10^3/uL (0.0-0.1); ABS Eosinophils 0.4 10^3/uL (0.0-0.5); ABS Lymphocytes 2.1 10^3/uL (1.0-4.8); ABS Monocytes 1.1 10^3/uL (0.0-0.9); ABS Neutrophils 10.4 10^3/uL (1.5-7.6); Eosinophil % 2.6 %; Hematocrit 24.6 % (35-45); Hemoglobin 7.8 g/dL (11.5-14.3); Mean Corpuscular Hemoglobin 24.8 pg (27-33); Mean Corpuscular Hgb Conc 31.7 g/dL (31-36); Mean Corpuscular Volume 78.3 fL (80-97); Mean Platelet Volume 7.6 fL (7.5-11.2); Platelet Count 343 10^3/uL (150-450); Red Blood Count 3.15 10^6/uL (3.63-4.92); Red Cell Distribution Width 18.4 % (12-17); White Blood Count 14.1 10^3/uL (3.8-11.8)
[2023-03-11 18:14] LABS: INR 1.01 (0.83-1.13)
[2023-03-11 18:18] LABS: Urine Appearance Cloudy; Urine Bilirubin Negative (Negative); Urine Blood Negative (Negative); Urine Color Yellow; Urine Glucose Negative (Negative); Urine Ketones Negative (Negative); Urine Nitrite Positive (Negative); Urine Protein Negative (Negative); Urine Specific Gravity 1.011 (1.002-1.030); Urine Urobilinogen Negative (Negative)
[2023-03-11 18:29] LABS: Albumin 3.7 g/dL (3.2-5.2); Albumin/Globulin Ratio 1.1 (1-3); Creatinine, Serum 0.99 mg/dL (0.51-0.95); Globulin 3.3 g/dL (2-4); Magnesium 1.9 mg/dL (1.9-2.7); Potassium 4.1 mmol/L (3.5-5.0); Total Bilirubin 0.2 mg/dL (0.2-1.0); eGFR CKD-EPI 54.8 (>60)
[2023-03-11] MEDS ORDERED: Iodixanol (CONTRAST) 320 MG/ML 100 ML SDV IV ONE (18:32)
[2023-03-11 19:26] LABS: Urine Bacteria 1+ (Absent); Urine Red Blood Cell 2+(6-10/hpf) (Absent); Urine Squamous Epithelial Cell Present (Absent); Urine White Blood Cell 3+(>20/hpf) (Absent)
[2023-03-11] MEDS ORDERED: Acetaminophen IV 1 GM/100ML 1,000 MG/100 ML BAG IV ONE (19:40)
[2023-03-11 19:42] LABS: High Sensitivity Troponin 1 Hr 7 pg/mL (<15)
[2023-03-11] MEDS ORDERED: cefTRIAXone 1 gm/50 mL D5W 1 GM/50 ML BAG IV ONE (20:01)
[2023-03-11] MEDS: Mometasone/Formoter 100/5 MDI INH SCH (21:20)
[2023-03-11] MEDS: CMCS: Dorzolamide 2% OPTH (NF) 10 ML BTL BOTH EYES SCH (21:23)
[2023-03-11] MEDS: Labetalol IV 5 MG/ML 20 ml VIAL IV PUSH ONE ×2 (21:29→21:41)
[2023-03-11] MEDS ORDERED: Furosemide 20 mg/2 ml IV VIAL IV ONE (22:49)
[2023-03-11] MEDS ORDERED: Dextrose 50% Syringe 50 ml 25 GM/50 ML SYRINGE IV PUSH PRN (22:52)
[2023-03-11] MEDS ORDERED: Enoxaparin 30 MG/0.3 ML SYR SUBCUT SCH (23:00)
[2023-03-12] MEDS: Mometasone/Formoter 100/5 MDI INH SCH ×2 (07:13→19:17)
[2023-03-12 07:38] LABS: ABS Basophils 0.1 10^3/uL (0.0-0.1); ABS Eosinophils 0.4 10^3/uL (0.0-0.5); ABS Lymphocytes 2.1 10^3/uL (1.0-4.8); ABS Monocytes 1.3 10^3/uL (0.0-0.9); ABS Neutrophils 11.4 10^3/uL (1.5-7.6); ABS Nucleated RBC 0.01 10^3/ul; Eosinophil % 2.5 %; Hematocrit 24.4 % (35-45); Hemoglobin 7.8 g/dL (11.5-14.3); Lymphocyte % 13.9 %; Mean Corpuscular Hemoglobin 25.4 pg (27-33); Mean Corpuscular Hgb Conc 32.1 g/dL (31-36); Mean Corpuscular Volume 79.3 fL (80-97); Mean Platelet Volume 7.1 fL (7.5-11.2); Platelet Count 324 10^3/uL (150-450); Red Blood Count 3.07 10^6/uL (3.63-4.92); Red Cell Distribution Width 18.9 % (12-17); White Blood Count 15.3 10^3/uL (3.8-11.8)
[2023-03-12 07:54] LABS: Creatinine, Serum 1.13 mg/dL (0.51-0.95); eGFR CKD-EPI 46.8 (>60)
[2023-03-12] MEDS: DULoxetine DR 30 mg CAP PO SCH (08:55)
[2023-03-12] MEDS: CMCS: Dorzolamide 2% OPTH (NF) 10 ML BTL BOTH EYES SCH ×3 (08:59→22:28)
[2023-03-12] MEDS: Lidocaine PATCH 5% PATCH TRANSDERM SCH (10:58)
[2023-03-12 12:12] LABS: % Iron Saturation 5 % (15-55); .Transferrin 300 mg/dL (203-362); Iron < 20 ug/dL (50-212); Total Iron Binding Capacity 420 mcg/dL (250-450); Unsaturated Iron Binding 400 ug/dL
[2023-03-12 12:26] LABS: Ferritin 8.2 ng/mL (11-307)
[2023-03-12] MEDS: Iron Sucrose 200 MG in NS 0.9% 100 ml BAG 100 ML IVPB SCH (15:33)
[2023-03-12] MEDS: cefTRIAXone 1 gm/50 mL D5W 1 GM/50 ML BAG IV SCH (22:01)
[2023-03-13 06:27] LABS: ABS Basophils 0.1 10^3/uL (0.0-0.1); ABS Eosinophils 0.5 10^3/uL (0.0-0.5); ABS Lymphocytes 1.5 10^3/uL (1.0-4.8); ABS Monocytes 0.9 10^3/uL (0.0-0.9); ABS Neutrophils 9.3 10^3/uL (1.5-7.6); Eosinophil % 3.9 %; Hematocrit 24.5 % (35-45); Hemoglobin 7.8 g/dL (11.5-14.3); Mean Corpuscular Hemoglobin 24.9 pg (27-33); Mean Corpuscular Hgb Conc 31.8 g/dL (31-36); Mean Corpuscular Volume 78.2 fL (80-97); Mean Platelet Volume 7.1 fL (7.5-11.2); Platelet Count 299 10^3/uL (150-450); Red Blood Count 3.14 10^6/uL (3.63-4.92); Red Cell Distribution Width 18.2 % (12-17); White Blood Count 12.3 10^3/uL (3.8-11.8)
[2023-03-13 06:47] LABS: Calcium 8.6 mg/dL (8.6-10.3); Creatinine, Serum 1.13 mg/dL (0.51-0.95); Potassium 3.8 mmol/L (3.5-5.0); eGFR CKD-EPI 46.8 (>60)
[2023-03-13] MEDS: Mometasone/Formoter 100/5 MDI INH SCH ×2 (07:23→19:26)
[2023-03-13] MEDS: Iron Sucrose 200 MG in NS 0.9% 100 ml BAG 100 ML IVPB SCH (08:39)
[2023-03-13] MEDS: DULoxetine DR 30 mg CAP PO SCH (08:42)
[2023-03-13] MEDS: Lidocaine PATCH 5% PATCH TRANSDERM SCH ×2 (08:45→16:54)
[2023-03-13] MEDS: CMCS: Dorzolamide 2% OPTH (NF) 10 ML BTL BOTH EYES SCH ×3 (08:45→20:31)
[2023-03-13] MEDS ORDERED: Enoxaparin 40 MG/0.4 ML SYR SUBCUT SCH (15:00)
[2023-03-13] MEDS: cefTRIAXone 1 gm/50 mL D5W 1 GM/50 ML BAG IV SCH (20:28)
[2023-03-14 06:23] LABS: ABS Basophils 0.1 10^3/uL (0.0-0.1); ABS Eosinophils 0.6 10^3/uL (0.0-0.5); ABS Lymphocytes 1.7 10^3/uL (1.0-4.8); ABS Nucleated RBC 0.01 10^3/ul; Eosinophil % 5.8 %; Hematocrit 22.3 % (35-45); Hemoglobin 7.2 g/dL (11.5-14.3); Lymphocyte % 16.7 %; Mean Corpuscular Hemoglobin 25.1 pg (27-33); Mean Corpuscular Hgb Conc 32.3 g/dL (31-36); Mean Corpuscular Volume 77.7 fL (80-97); Mean Platelet Volume 7.5 fL (7.5-11.2); Nucleated Red Blood Cells % 0.1 %/100WBC (0.0-0.8); Platelet Count 282 10^3/uL (150-450); Red Blood Count 2.87 10^6/uL (3.63-4.92); White Blood Count 10.4 10^3/uL (3.8-11.8)
[2023-03-14 06:45] LABS: Calcium 8.5 mg/dL (8.6-10.3); Potassium 3.7 mmol/L (3.5-5.0); eGFR CKD-EPI 54.2 (>60)
[2023-03-14] MEDS: Mometasone/Formoter 100/5 MDI INH SCH (08:25)
[2023-03-14 09:41] VITALS: BP 119/76
[2023-03-14] MEDS: DULoxetine DR 30 mg CAP PO SCH (10:10)
[2023-03-14] MEDS: CMCS: Dorzolamide 2% OPTH (NF) 10 ML BTL BOTH EYES SCH (10:12)
[2023-03-14] MEDS: Lidocaine PATCH 5% PATCH TRANSDERM SCH (10:13)
[2023-03-14 10:31] LABS: ABS Basophils 0.1 10^3/uL (0.0-0.1); ABS Eosinophils 0.5 10^3/uL (0.0-0.5); ABS Lymphocytes 1.5 10^3/uL (1.0-4.8); ABS Monocytes 0.8 10^3/uL (0.0-0.9); ABS Neutrophils 8.5 10^3/uL (1.5-7.6); ABS Nucleated RBC 0.01 10^3/ul; Eosinophil % 4.5 %; Hematocrit 25.2 % (35-45); Lymphocyte % 13.1 %; Mean Corpuscular Hemoglobin 24.9 pg (27-33); Mean Corpuscular Hgb Conc 31.7 g/dL (31-36); Mean Corpuscular Volume 78.6 fL (80-97); Mean Platelet Volume 7.3 fL (7.5-11.2); Nucleated Red Blood Cells % 0.1 %/100WBC (0.0-0.8); Platelet Count 325 10^3/uL (150-450); Red Blood Count 3.21 10^6/uL (3.63-4.92); Red Cell Distribution Width 18.4 % (12-17); White Blood Count 11.4 10^3/uL (3.8-11.8)
[2023-03-14] MEDS: Iron Sucrose 200 MG in NS 0.9% 100 ml BAG 100 ML IVPB SCH (10:39)
== END 2023-03-14 12:40 | disposition home or self-care (01) ==
LOC: EDHOLD 16:05 → ED 16:05 → SUATTDRO 19:59 → EDHOLD 22:03 → MED 22:13
PROVIDERS: ADMIT Internal Medicine; ATTEND Internal Medicine